=== PATIENT | female | born 1980 | race Caucasian/White ===

== ENCOUNTER 2017-09-08 20:09 | Emergency (ER) | payer OTHER ==
[~2017-09-08] VITALS: Ht 170.2 cm; Wt 86.2 kg
[2017-09-08 20:15] VITALS: Ht 170.2 cm; Wt 86.2 kg
[2017-09-08 22:14] LABS: AMPHETAMINE QUAL UR NONE DETECTED (NEG <=1000)
[2017-09-08 22:16] LABS: BASOPHIL % 0.2 % (0-2); PLATELET COUNT 255 x10^3mcL (130-400); RED CELL DISTRIBUTION WIDTH 14.4 % (11.5-14.5)
[2017-09-08 22:39] LABS: ALBUMIN 3.5 g/dL (3.4-5.0); ALKALINE PHOSPHATASE 53 U/L (46-116); ALT/SGPT 18 U/L (14-59); AST/SGOT 12 U/L (15-37); BILIRUBIN TOTAL 0.1 mg/dL (0.20-1.00); CARBON DIOXIDE 20.2 mmol/L (21-32); CHLORIDE SERUM 108 mmol/L (98-107); CREATININE SERUM 0.9 mg/dL (0.6-1.0); GFR1 > 60 mL/min; GLUCOSE SERUM 112 mg/dL (74-106); SODIUM SERUM 143 mmol/L (136-145); T4(THYROXINE) 7.4 ug/dL (4.7-13.3); TOTAL PROTEIN, SERUM 7.2 g/dL (6.4-8.2)
[2017-09-08 22:45] LABS: POTASSIUM SERUM 2.5 mmol/L (3.5-5.1)
[2017-09-09 00:27] VITALS: BP 148/99
== END 2017-09-09 00:28 | disposition home or self-care (01) ==
LOC: ED 20:09
PROVIDERS: Emergency Medicine
DX: E87.6 Hypokalemia (principal)
CPT/HCPCS: 83880; J2405; J7030; Q0092

== ENCOUNTER 2017-09-27 19:42 | Inpatient (IN) | payer OTHER ==
[~2017-09-27] VITALS: Ht 170.2 cm; Wt 96.4 kg
[2017-09-27 20:27] LABS: BASOPHIL % 0.1 % (0-2); PLATELET COUNT 303 x10^3mcL (130-400)
[2017-09-27 20:32] LABS: RED CELL DISTRIBUTION WIDTH 14.8 % (11.5-14.5)
[2017-09-27] MEDS ORDERED: OSTERA TABLET1 EACH PO (20:35)
[2017-09-27] MEDS ORDERED: FERROUS SULFAT325 M2 PO (20:36)
[2017-09-27] MEDS ORDERED: DILTIAZEM HCL120 M2 PO (20:36)
[2017-09-27] MEDS ORDERED: REMERON SOLTAB45 MG PO (20:37)
[2017-09-27] MEDS ORDERED: SENNA8.6 M2 PO (20:38)
[2017-09-27] MEDS ORDERED: DUL5 PO (20:38)
[2017-09-27] MEDS ORDERED: XOPENEX1.25 MG/3 (20:39)
[2017-09-27 21:08] LABS: ALBUMIN 3.8 g/dL (3.4-5.0); BILIRUBIN TOTAL 0.15 mg/dL (0.20-1.00); CALCIUM 8.4 mg/dL (8.5-10.1); CARBON DIOXIDE 16.1 mmol/L (21-32); CREATININE SERUM 1.2 mg/dL (0.6-1.0); FREE T4 1.09 ng/dL (0.76-1.46); MAGNESIUM 1.8 mg/dL (1.8-2.4); TOTAL PROTEIN, SERUM 7.6 g/dL (6.4-8.2)
[2017-09-27 21:12] LABS: POTASSIUM SERUM 2.2 mmol/L (3.5-5.1)
[2017-09-27 22:38] LABS: microscopic required? NO
[2017-09-27 22:55] LABS: UA SPECIFIC GRAVITY 1.025 (1.005-1.035); urine erythrocyte NEGATIVE (NEGATIVE)
[2017-09-27 23:03] LABS: AMPHETAMINE QUAL UR NONE DETECTED (See below)
[2017-09-28 00:09] LABS: CALCIUM 7.8 mg/dL (8.5-10.1); CARBON DIOXIDE 14.3 mmol/L (21-32); CHLORIDE SERUM 110 mmol/L (98-107); GFR1 > 60 mL/min; GLUCOSE SERUM 218 mg/dL (74-106); SODIUM SERUM 142 mmol/L (136-145)
[2017-09-28 00:12] LABS: POTASSIUM SERUM 2.7 mmol/L (3.5-5.1)
[2017-09-28 02:59] VITALS: BP 127/69
[2017-09-28 05:38] LABS: BASOPHIL % 0.4 % (0-2); PLATELET COUNT 231 x10^3mcL (130-400)
[2017-09-28 05:42] LABS: RED CELL DISTRIBUTION WIDTH 14.7 % (11.5-14.5)
[2017-09-28 05:58] LABS: CALCIUM 7.6 mg/dL (8.5-10.1); CARBON DIOXIDE 20.6 mmol/L (21-32); CHLORIDE SERUM 113 mmol/L (98-107); CREATININE SERUM 0.7 mg/dL (0.6-1.0); GFR1 > 60 mL/min; GLUCOSE SERUM 114 mg/dL (74-106); MAGNESIUM 1.6 mg/dL (1.8-2.4); PHOSPHOROUS 2.3 mg/dL (2.5-4.9); POTASSIUM SERUM 3.3 mmol/L (3.5-5.1); SODIUM SERUM 144 mmol/L (136-145)
[2017-09-28 07:15] VITALS: BP 107/66
[2017-09-28 11:01] LABS: ALKALINE PHOSPHATASE 47 U/L (46-116); ALT/SGPT 13 U/L (14-59); AST/SGOT 9 U/L (15-37); BILIRUBIN TOTAL 0.2 mg/dL (0.20-1.00); CALCIUM 7.2 mg/dL (8.5-10.1); CARBON DIOXIDE 17.9 mmol/L (21-32); CHLORIDE SERUM 113 mmol/L (98-107); CREATININE SERUM 0.8 mg/dL (0.6-1.0); GFR1 > 60 mL/min; GLUCOSE SERUM 99 mg/dL (74-106); MAGNESIUM 2.2 mg/dL (1.8-2.4); POTASSIUM SERUM 3.7 mmol/L (3.5-5.1); SODIUM SERUM 139 mmol/L (136-145)
[2017-09-28 11:14] LABS: ALBUMIN 2.6 g/dL (3.4-5.0); TOTAL PROTEIN, SERUM 5.4 g/dL (6.4-8.2)
[2017-09-28 12:01] VITALS: BP 152/73
[2017-09-28 15:20] VITALS: BP 106/61
[2017-09-28 18:24] LABS: ALKALINE PHOSPHATASE 46 U/L (46-116); ALT/SGPT 15 U/L (14-59); AST/SGOT 10 U/L (15-37); BILIRUBIN TOTAL 0.3 mg/dL (0.20-1.00); CALCIUM 8.2 mg/dL (8.5-10.1); CARBON DIOXIDE 20.6 mmol/L (21-32); CHLORIDE SERUM 114 mmol/L (98-107); CREATININE SERUM 0.8 mg/dL (0.6-1.0); GFR1 > 60 mL/min; GLUCOSE SERUM 103 mg/dL (74-106); POTASSIUM SERUM 4.5 mmol/L (3.5-5.1); SODIUM SERUM 140 mmol/L (136-145)
[2017-09-28 18:26] LABS: ALBUMIN 2.9 g/dL (3.4-5.0); TOTAL PROTEIN, SERUM 6.1 g/dL (6.4-8.2)
[2017-09-28 19:30] VITALS: BP 111/67
[2017-09-28 22:37] LABS: CALCIUM 8.8 mg/dL (8.5-10.1); CARBON DIOXIDE 19.3 mmol/L (21-32); CHLORIDE SERUM 111 mmol/L (98-107); CREATININE SERUM 0.9 mg/dL (0.6-1.0); GFR1 > 60 mL/min; GLUCOSE SERUM 121 mg/dL (74-106); POTASSIUM SERUM 4.1 mmol/L (3.5-5.1); SODIUM SERUM 141 mmol/L (136-145)
[2017-09-28 23:02] VITALS: BP 100/52
[2017-09-29 03:12] VITALS: BP 112/72
[2017-09-29 05:28] LABS: BASOPHIL % 0.7 % (0-2); PLATELET COUNT 255 x10^3mcL (130-400)
[2017-09-29 05:31] LABS: RED CELL DISTRIBUTION WIDTH 15.1 % (11.5-14.5)
[2017-09-29 05:43] LABS: CALCIUM 8.8 mg/dL (8.5-10.1); CARBON DIOXIDE 19.5 mmol/L (21-32); CHLORIDE SERUM 108 mmol/L (98-107); CHOLESTEROL 153 mg/dL (<200); CREATININE SERUM 0.9 mg/dL (0.6-1.0); GFR1 > 60 mL/min; GLUCOSE SERUM 129 mg/dL (74-106); POTASSIUM SERUM 4.4 mmol/L (3.5-5.1); SODIUM SERUM 140 mmol/L (136-145); TRIGLYCERIDES 119 mg/dL (<150)
[2017-09-29 05:44] LABS: CHOLESTEROL/HDL RATIO 5.5; HDL CHOLESTEROL 28 mg/dL (40-60)
[2017-09-29 07:47] VITALS: BP 117/77
[2017-09-29 11:14] VITALS: BP 109/66
[2017-09-29 13:50] LABS: CALCIUM 9.4 mg/dL (8.5-10.1); CARBON DIOXIDE 23.2 mmol/L (21-32); CHLORIDE SERUM 107 mmol/L (98-107); CREATININE SERUM 0.8 mg/dL (0.6-1.0); GFR1 > 60 mL/min; GLUCOSE SERUM 103 mg/dL (74-106); POTASSIUM SERUM 4.2 mmol/L (3.5-5.1); SODIUM SERUM 140 mmol/L (136-145)
[2017-09-29 15:03] VITALS: BP 99/68
[2017-09-29 18:05] VITALS: BP 116/75
== END 2017-09-29 22:25 | disposition other institution (70) | DRG 871 ==
LOC: ED 19:42 → IC 09-28 01:04 → DU 09-29 17:46
PROVIDERS: Emergency Medicine; Internal Medicine
PROC: 05HM33Z Insertion of Infusion Device into Right Internal Jugular Vein, Percutaneous Approach (ICD-10-PCS; principal; 2017-09-28)
DX: A41.9 Sepsis, unspecified organism (principal); E11.10 Type 2 diabetes mellitus with ketoacidosis without coma; J69.0 Pneumonitis due to inhalation of food and vomit; I47.1 Supraventricular tachycardia; N17.9 Acute kidney failure, unspecified; I25.10 Atherosclerotic heart disease of native coronary artery without angina pectoris; Z88.2 Allergy status to sulfonamides; Z88.1 Allergy status to other antibiotic agents
CPT/HCPCS: 82962; 84439; 85378; J1650; J1815; J1885; J2060; J2250; J2270; J2405; J2543; J2550; J3010; J3475; J3480; J3490; J7030; J7040; J7042; Q0092; Q9967